=== PATIENT | male | born 1955 | race Hispanic/Latino ===

== ENCOUNTER → 2020-10-30 13:58 | Outpatient (CLI) | payer OTHER, SELFPAY ==
[2020-10-30 15:04] LABS: COVID19 -Nasal RAPID Negative (Negative)
== END ==
PROVIDERS: Referring Provider Orthopaedic Surgery; Visit Provider Student in an Organized Health Care Education/Training Program
DX: Z01.812 Encounter for preprocedural laboratory examination (principal); Z20.822 Contact with and (suspected) exposure to COVID-19
CPT/HCPCS: 87635

== ENCOUNTER 2020-10-31 12:30 | Day surgery (SDC) | payer OTHER, SELFPAY ==
[2020-10-23 09:18] VITALS: BMI 32.4
[2020-10-31] VITALS (10 sets, daily range): BP systolic 121–163; BP diastolic 66–90; PULSE 60–69; RESP 11–19; TEMP 35.4–36.7; O2SAT 96–100; BMI 32.4
[2020-10-31] MEDS: CELECOXIB 200 MG CAPSULE PO (12:51)
[2020-10-31] MEDS: ACETAMINOPHEN 325 MG TABLET 975 MG PO (12:51)
[2020-10-31] MEDS: PREGABALIN 75 MG CAPSULE PO (12:51)
[2020-10-31] MEDS: LACTATED RINGERS 1,000 ML 42 ML IV (13:14)
--- NOTE | 2020-10-31 13:14 | SUR.PREOP ---
Pre op admit completed with assistance of hospital-approved broker assistant. All questions answered and explained to patient. Visitor policy explained.
[2020-10-31] MEDS: VANCOMYCIN 1,000 MG/200 ML PIGGYBACK 200 MG IV (14:01)
--- NOTE | 2020-10-31 14:30 | DI.RAD.S_ITS ---
PROCEDURE: XR PELVIS 1-2V INDICATIONS: INTEROPERATIVE TOTAL RIGHT HIP TECHNIQUE: Intra-operative view of the pelvis and hip acquired. COMPARISON: None. FINDINGS: Bones: Intraoperative devices prior to placement of arthroplasty prostheses are in expected positions. No fractures or suspicious bony lesions. Soft tissues: Overlying surgical retractors are present, along with other intraoperative changes. IMPRESSION: Normal alignment established in preparation for placement of final components of right total hip arthroplasty. Dictated by: Higinio Zapata M.D. on 10/31/2020 at 16:54 Approved by: Higinio Zapata M.D. on 10/31/2020 at 16:55
[2020-10-31] MEDS: CEFAZOLIN 1 GM VIAL 2 GM IV ×2 (15:15→23:17)
[2020-10-31] MEDS: TRANEXAMIC ACID 1,000 MG VIAL 2000 MG INJ ×2 (15:17→16:54)
--- NOTE | 2020-10-31 15:48 | SUR.OPER ---
Left Lateral on padded OR bed. Gel axillary roll. Arms secured on padded armboard with pillow supporting top arm. Padded hip positioner braces x4 - anterior and posterior chest and pelvis. Additional gel pad used anterior pelvis. Gel pad under bottom leg from knee to foot and secured with tape over sheet.
[2020-10-31] MEDS: BUPIVACAINE 0.25% W/ EPI 30 ML VIAL 60 ML INJ (16:04)
[2020-10-31] MEDS: BUPIVACAINE LIPOSOME 266 MG/20 ML VIAL INJ (16:05)
[2020-10-31] MEDS: SODIUM CHLORIDE IRRIG SOLUTION 250 ML, POVIDONE-IODINE SPONGE STICKS 1 APPLIC IRR (16:07)
--- NOTE | 2020-10-31 16:16 | SUR.OPER ---
Addendum entered by Flory Macdonald R.N. 10/31/20 16:17: Lucas Cheema [phone], [facility] Approved interpreter for the deaf. Original Note: Pre-operative interview, confirming procedure consent prior to bringing patient to OR completed with [facility] approved Ergonomics Technician Lucas. Patient had no further questions.
[2020-10-31] MEDS: SODIUM CHLORIDE IRRIG SOLUTION 250 ML, EPINEPHrine 1 MG IRR (16:20)
--- NOTE | 2020-10-31 16:30 | DI.RAD.S_ITS ---
PROCEDURE: XR HIP W PEL IF DONE RT 2V INDICATIONS: RT TOTAL HIP TECHNIQUE: 2 view(s) of the hip acquired. COMPARISON: None. FINDINGS: Bones: Patient is status post right hip arthroplasty, with hardware components in expected positions. The hip joint appears congruent. The visualized bony structures appear intact. Soft tissues: Overlying postoperative changes are noted. No suspicious soft tissue densities. IMPRESSION: Postop changes from right total hip arthroplasty with anatomic right hip alignment. Dictated by: Louis Bucio M.D. on 11/01/2020 at 9:06 Approved by: Louis Bucio M.D. on 11/01/2020 at 9:07
--- NOTE | 2020-10-31 17:50 | P.OP_ITS ---
Operative Date/Time/Diagnoses Date of procedure: 10/31/20 Time of procedure: 15:00 Pre-op diagnosis: right hip post traumatic OA Post-op diagnosis: same Procedure & Clinicians Procedure: Right total hip arthroplasty posterior approach Same procedure as scheduled: Yes Indications: The patient has had progressively worsening right hip pain with radiographic changes consistent with arthritis. Non-operative management has failed and the patient has requested total hip replacement. The risks, benefits and alternatives to surgery were discussed with the patient prior to proceeding. Risks discussed included, but were not limited to, failure to relieve pain, leg length discrepancy, dislocation, stiffness, infection, nerve damage, deep venous thrombosis, pulmonary embolism, stroke, coma, heart attack, permanent paralysis and , as well as the potential need for eventual revision of the prosthetic. Surgeon: Autumn Olivier Bereavement Counselor: Yoandy Marr Anesthesia Type: General and Spinal Operative Notes Findings: Severe right hip osteoarthritis, adequate stability, good bone Closure Type: primary Specimen(s): none sent Prosthetic devices, grafts, tissues, transplants, or devices: Olivier and nephew size 7 high offset anthology, 54 mm cup, 36 by -3 Oxinium femoral head Applied: drain(s) Estimated Blood Loss (mL): 250 Blood products transfused: none Procedure in detail: The patient was seen in the pre-operative area, where the patient identified the right hip as the operative site and this was marked with my initials. The patient received pre-operative antibiotics and was taken to the operating room and placed on the operative table in the left lateral decubitus position after satisfactory anesthesia. A design center consultant out was performed. The right leg was prepared from the ankle to the iliac crest with ChloroPrep in the usual fashion and draped through sterile drapes. The hip was approached through an approximately 20 cm incision centered over the greater trochanter and curving gently posteriorly as it went proximally. This was carried sharply to the fascia celeste, which was divided and retracted with a self retaining retractor. The trochanteric bursa was excised with care being taken to avoid the sciatic nerve, which was identified and protected throughout the case. The short external rotators were incised and the capsulomuscular flap was raised and tagged for later repair. The hip was dislocated, and a femoral neck osteotomy performed approximately 15 mm above the lesser trochanter. Retractors were placed around the femur. The canal was opened with a box cutting osteotome, followed by a T handled reamer and a lateralizing reamer. The chili pepper broach was then used, followed by sequential broaching until there was good stability of the broach in the femur. Retractors were placed to expose the acetabulum. The labrum and central soft tissues were removed. Reaming was performed initially going up in 2 mm increments, then 1 mm increments until good bite was obtained with an odd sized reamer. The cup 1 mm larger than the last reamer was then inserted using the appropriate anteversion guides. It was further stabilized with a single screw. A trial neutral liner was placed. The broach was placed in the canal. A trial head and neck were then placed and the hip relocated and checked for leg length and stability. An intraoperative film confirmed the component position and no evidence of fracture. The patient was stable in the position of sleep, of squatting, and could be put through a range of motion with 45 degrees internal rotation without dislocation. At 90 degrees flexion, internal rotation to 70? was possible before dislocation. This was felt to be satisfactory and the appropriate components were opened, and the trials were removed. The acetabular liner was impacted into position. The final stem was then impacted into the prepared femoral canal. A brief Betadine soak was performed while trialing with head options. The hip was meticulously irrigated with normal saline. Finally the femoral head was impacted onto the stem. The acetabulum was cleared of all material and the hip relocated one final time. The capsulomuscular flap was then repaired to the greater trochanter though an awl hole using the tag sutures. The short external rotators were repaired with a nonabsorbable suture. A deep drain was placed and brought out anteriorly. The fascia celeste was closed with Vicryl. The subcutaneous layer was closed with barbed sutures and SteriStrips. An Aquacel Ag dressing was applied and the patient was taken to recovery having tolerated the procedure well. Complications: none Post-operative Condition: stable Disposition: Acute Care Plan for aftercare: The patient will be maintained on a standard total hip replacement protocol with weight bearing as tolerated and posterior hip precautions. The patient will receive Aspirin and sequential compression devices for DVT prophylaxis. The patient will be discharged home when safe for the home environment.
[2020-10-31] MEDS: OXYCODONE IR 5 MG TABLET PO ×2 (18:30→20:26)
[2020-10-31] MEDS: LACTATED RINGERS 1,000 ML 125 ML IV (18:31)
[2020-10-31] MEDS: ACETAMINOPHEN 325 MG TABLET 650 MG PO (21:26)
[2020-10-31] MEDS: IBUPROFEN 400 MG TABLET PO (21:27)
[2020-10-31] MEDS: ASPIRIN EC 81 MG TABLET PO (21:27)
[2020-10-31] MEDS: DOCUSATE 100 MG CAPSULE PO (21:27)
[2020-11-01 00:15] VITALS: BP 144/65; PULSE 67; RESP 16; TEMP 36.1; O2SAT 96
[2020-11-01] MEDS: OXYCODONE IR 5 MG TABLET PO ×3 (00:39→09:28)
[2020-11-01] MEDS: IBUPROFEN 400 MG TABLET PO ×4 (00:39→14:14)
[2020-11-01] MEDS: LACTATED RINGERS 1,000 ML 125 ML IV (02:47)
[2020-11-01 05:20] VITALS: BP 124/62; PULSE 62; RESP 18; TEMP 36.7; O2SAT 97
[2020-11-01] MEDS: CEFAZOLIN 1 GM VIAL 2 GM IV (06:28)
[2020-11-01 07:01] LABS: Hematocrit 37.6 % (41-53); Hemoglobin 12.2 g/dL (13.5-17.5)
[2020-11-01 08:01] VITALS: BP 125/59; PULSE 59; RESP 16; TEMP 36.7; O2SAT 97
[2020-11-01] MEDS: ACETAMINOPHEN 325 MG TABLET 650 MG PO ×2 (09:27→14:13)
[2020-11-01] MEDS: ASPIRIN EC 81 MG TABLET PO (09:28)
[2020-11-01] MEDS: DOCUSATE 100 MG CAPSULE PO (09:28)
--- NOTE | 2020-11-01 11:22 | PC.NURSE ---
Assess-Patient is alert and oriented x3, he is doing well. Given oxycodone for pain and helpful. Dressing to posterior hip is cdi, marielena Martinez to discharge patient more this afternoon. His is in the room and attentive to patients needs.
--- NOTE | 2020-11-01 11:25 | PT.IIE ---
Current Diagnoses Unilateral primary osteoarthritis, right hip (10/31/20) Surgery Performed Operation Date: 10/31/20 14:15 Actual Procedures p Total Hip Arthroplasty(Right) - Autumn Olivier MD Medical History (Last Updated 10/23/20 @ 10:49 by Alivia Kirk, RN) Medical history non-contributory Osteoarthritis Physical Therapy Inpatient Evaluation/Re-Eval M1 PT/OT-IP Prior Functional Status Start: 11/01/20 13:05 Freq: NEEDED Status: Active Protocol: Document 11/01/20 11:25 AB (Rec: 11/01/20 13:28 AB [id number]) Medical Review Prior Functional Status Medical History Reviewed Yes Communication mainly tamazight speaking; able to make needs known Mobility and Gait pt stated that he is indpeendnet with all mobilities and ambulation withotu AD but occasionally uses a SPC for outdoor ambulation Social History Household Members spouse Living Arrangements House Number of Floors (Floors) One Floor Number of Stairs To Enter/Railing? 1 step to enter Home Environment Standard Height Toilet,Tub/ Shower Home Equipment Straight Cane,Grab Bars In Shower M2 PT-IP Current Condition Start: 11/01/20 13:05 Freq: NEEDED Status: Active Protocol: Document 11/01/20 11:25 AB (Rec: 11/01/20 13:28 AB [id number]) Physical Therapy Current Condition Current Condition Evaluation Date 11/01/20 Treatment Diagnosis s/p R BAYRON posterior approach; difficulty in walking Onset Date 10/31/20 Precautions Posterior Hip Precautions No Hip Flexion > 90 degrees,No Hip Internal Rotation,No Hip Adduction Weight Bearing Status Weight Bearing Status Weight Bear as Tolerated Allowed Weight Bearing Amount (enter % RLE WBAT or #) (%) M3 PT-IP Subjective Start: 11/01/20 13:05 Freq: NEEDED Status: Active Protocol: Document 11/01/20 11:25 AB (Rec: 11/01/20 13:28 AB [id number]) Subjective Physical Therapy Visit Type Type Initial Evaluation Visit Start Time 11:25 Visit Stop Time 12:09 Total Visit Minutes 44 Notes reviewed chart and order included anterior hip precaution but nurse confirmed and clarified that it is posterior hip precaution and no anterior hip precaution; also notes MD surgery report: posterior hip approach Number of LAWYER Visits 0 Physical Therapy Visit Comments Patient Comments agreed to do PT; nurse Gina richard in room to assist with translation Therapy Pain Assessment Pain When Pain Assessed At Rest Pain Present Pain Present Pain Reported Location Right Hip Intensity 5 Scale Used Numeric (0 - 10) Pain Management Techniques Apply Cold,Distraction, Modification of Treatment,Re- positioning,Timing of Activity with Medications M4 PT-IP Mobility and Gait Start: 11/01/20 13:05 Freq: NEEDED Status: Active Protocol: Document 11/01/20 11:25 AB (Rec: 11/01/20 13:28 AB [id number]) PT-Bed Mobility Assessment Supine to Sit Supine to Sit Standby Assistance PT-Transfer Assessment Sit to and From Stand Sit to and from Stand Moderate Assistance,1 Person Assistance,Use of Upper Extremities Equipment Transfer Assistive Device Gait Belt,Front Wheeled Walker Orthotic/Prosthetic Devices or Brace: No Transfers Transfer Destination Chair Transfer Technique ambulated using FWW Transfer Ability Level of Assist Moderate Assistance,1 Person Assistance,Use of Upper Extremities Comments Mobility Comments pt educated on posterior hip precautions and understood. post-op folder provided. completed supine to sit SBA with cues. completed x 2 attempts with difficulty and requiring increase time to complete. reminded pt with hip precautions. completed sit to stand mod A and cues and ambulated in room using FWW and was only able to ambuate ~ 15 CGA to min A and pt has to sit down. refused further ambulation but agreed to stay up on the chair. positioned pt on chair. call light and table placed within reach. Gait Assessment Gait Gait Assistance Required: Contact Guard Assist,Minimum Assistance,1 Person Assist Distance (Feet) 15 Assistive Devices Assistive Device Gait Belt,Front Wheeled Walker Orthotic/Prosthetic Devices or Brace: No Gait Deviations General Gait Pattern Antalgic,Decreased Stride Length,Decreased Feet Clearance,Step-to Gait Factors Limiting Gait Function Factors Limiting Gait Function Decreased Activity Tolerance, Decreased Strength,Limited Range of Motion,Pain,Poor Balance Comments Gait Comments pls refer to mobility section for details PT-Balance Assessment Sitting Balance and Reactions Static Sitting Balance Ability Good Dynamic Sitting Balance Ability Good Standing Balance and Reactions Static Standing Balance Ability Fair Dynamic Standing Balance Ability Fair Device Used FWW M5 PT-IP Objective Assessments Start: 11/01/20 13:05 Freq: NEEDED Status: Active Protocol: Document 11/01/20 11:25 AB (Rec: 11/01/20 13:28 AB [email or web address]) Orientation Orientation/Cognition Level of Alertness Alert Orientation Name,Place,Situation Safety Awareness Understands Safety Issues, Decreased Safety Awareness Memory Description No Deficits Noted Gross Range of Motion Lower Extremity ROM Assessment Within Functional Limits Strength Lower Extremity Strength Assessment Right Impaired Hip 3+/5 Knee 4-/5 Coordination Assessment Gross Coordination Gross Coordination WNL Sensation Assessment Sensation Gross Sensation WNL Muscle Tone Muscle Tone WNL Yes M6 PT-IP Treatment Start: 11/01/20 13:05 Freq: NEEDED Status: Active Protocol: Document 11/01/20 11:25 AB (Rec: 11/01/20 13:28 AB [id number]) Physical Therapy Treatment Education Education Provided Precautions,Weight Bearing Status,Post-Op Packet,Safety M7 PT-IP Assessment and Plan Start: 11/01/20 13:05 Freq: NEEDED Status: Active Protocol: Document 11/01/20 11:25 AB (Rec: 11/01/20 13:28 AB [id number]) PT Summary Assessment and Plan Potential Rehabilitation Potential Good Status of Condition at Evaluation Stable Summary Impairments Pain,ROM,Strength,Balance, Coordination,Sensation,Tone, Cognition,Bed Mobility, Transfers,Gait,Activity Tolerance Assessment Summary pt requiring min to mod A with mobility using FWW but will likely progress with mobility during hospital stay. pt will have his spouse to assist him at home and caregiver training will be completed when appropriate as well as stair climbing training. pt currently has decrease activity tolerance and unable to ambulate much. will continue to assess progress and work towards goals. Goals Bed Mobility Goal Independent Transfer Goal Independent,Front Wheeled Walker Gait Goal Independent,Front Wheel Walker Gait Distance 150 Other Goals up/down 1 steps using FWW SBA Days to Meet Goals 5 Frequency of Treatment Frequency Of Treatment Twice a Day Treatment Plan Physical Therapy Treatment Plan Bed Mobility Training,Transfer Training,Gait Training, Therapeutic Exercise,Balance Retraining,Post Op Education, Discharge Planning,Hot or Cold Pack,Neuromuscular Re-ed, Coordination Retraining,Manual Therapy Precautions Posterior Hip Precautions No Hip Flexion > 90 degrees,No Hip Internal Rotation,No Hip Adduction Other Precautions RLE WBAT Recommendations To Nursing Amount of Assist Needed 1 Person Assist Discharge Recommendations PT Discharge Recommendations Home with Assistance, Outpatient PT Equipment Needed for Home Before FWW: will ask for orders Discharge Transportation Needs at Discharge Private Vehicle
[2020-11-01 11:26] VITALS: BP 139/68; PULSE 59; RESP 16; TEMP 36.8; O2SAT 98
--- NOTE | 2020-11-01 13:52 | PM.DS.1 ---
History of Present Illness History of Present Illness Date Patient Seen: 11/01/20 Time Patient Seen: 13:52 Chief complaint: Right Total Hip Arthroplasty *OPB* Narrative: Pain mild. Denies fever chills. No nausea vomiting. Son at bedside to interpret. Discharge Providers Provider Discharge Date: 11/01/20 Consults: 10/31/20 10:30 Consult to Anesthesiology Routine Comment: Consulting Provider: Anesthesiologist Reason for consultation: Regional block for post operative pain control 10/31/20 18:07 Consult to Discharge Planning Routine Comment: Consult to Physical Therapy Evaluate & Treat Comment: Physician Instructions: post op BAYRON protocol Consult to Respiratory Therapy Evaluate & Treat Comment: Physician Instructions: Evaluate and treat 11/01/20 13:48 Consult to Physical Therapy Evaluate & Treat Comment: Fit with FWW for home Physician Instructions: Evaluate and Treat Discharge provider: Yoandy Marr PA-C Summary Hospital Course Discharge Diagnosis: Right hip posttraumatic osteoarthritis Hospital Course: Pre-op diagnosis: right hip post traumatic OA Post-op diagnosis: same Procedure & Clinicians Procedure: Right total hip arthroplasty posterior approach Same procedure as scheduled: Yes Indications: The patient has had progressively worsening right hip pain with radiographic changes consistent with arthritis. Non-operative management has failed and the patient has requested total hip replacement. The risks, benefits and alternatives to surgery were discussed with the patient prior to proceeding. Risks discussed included, but were not limited to, failure to relieve pain, leg length discrepancy, dislocation, stiffness, infection, nerve damage, deep venous thrombosis, pulmonary embolism, stroke, coma, heart attack, permanent paralysis and , as well as the potential need for eventual revision of the prosthetic. Surgeon: Autumn Olivier Lactation Consultant: Yoandy Marr Anesthesia Type: General and Spinal Operative Notes Findings: Severe right hip osteoarthritis, adequate stability, good bone Closure Type: primary Specimen(s): none sent Prosthetic devices, grafts, tissues, transplants, or devices: Olivier and nephew size 7 high offset anthology, 54 mm cup, 36 by -3 Oxinium femoral head Applied: drain(s) Estimated Blood Loss (mL): 250 Blood products transfused: none Patient admitted to the hospital for right total hip arthroplasty, posterior approach. Patient consented to the same. Patient taken to the operating room on October 31, 2020. Patient back in his room recovering well as in stable condition. Patient will be weight-bearing as tolerated. Posterior hip precautions. Discharge home today in stable condition. Status at Discharge Cognitive/behavioral status at discharge: at baseline, oriented Functional status at discharge: uses cane/walker Overall status at discharge: patient is progressing back to baseline Exam Vital Signs (past 8 hours): - 11/01/20 08:01 11/01/20 11:26 Temperature 98.1 F 98.2 F Pulse Rate 59 L 59 L Respiratory Rate 16 16 Blood Pressure 125/59 L 139/68 Pulse Oximetry 97 98 Oxygen Delivery Method Room Air Oxygen Flow Rate 0 Narrative Exam Narrative: Pleasant 65-year-old male resting in bedside chair in no apparent distress. Dressing Clean, dry, intact.. Neurovascular status is intact bilateral lower extremities. Objective Labs Result Diagrams: 11/01/20 06:18 Labs: Laboratory Results - last 24 hr 11/01/20 06:18 Hgb 12.2 L Hct 37.6 L PFSH Medical History Medical history non-contributory Osteoarthritis Surgical History No history of previous surgery Social History household members: spouse Smoking Status: Never smoker alcohol intake: never Discharge Assessment & Plan Assessment and Plan Assessment: Patient progressing as expected status post right total hip arthroplasty Plan of Treatment: Discharge home today in stable condition. Discharge Plan Discharge Plan Patient Disposition: Home Provider Discharge Comment: Discharge home after physical therapy Discharge orders & Medications Discharge Orders: Discharge (Order); Ordered 11/01/20 Ordered By: Yoandy Marr Prescriptions: New acetaminophen 325 mg Tablet 650 mg PO TID Qty: 60 RF: 0 polyethylene glycol 3350 17 gram Powder In Packet 17 gm PO DAILY PRN (Reason: Constipation) Qty: 10 RF: 0 aspirin 81 mg Tablet,Delayed Release (Dr/Ec) 81 mg PO BID Qty: 60 RF: 0 ibuprofen 400 mg Tablet 400 mg PO Q4HR Qty: 60 RF: 0 oxycodone 5 mg Tablet 5 mg PO Q3HR PRN (Reason: Pain, Moderate (4-6)) Qty: 40 RF: 0 Discontinued meloxicam 15 mg Tablet 15 mg PO DAILY RF: 0 Follow up/Referrals: Autumn Olivier MD [Physician] - (2 weeks) Diet/Activity/Treatments Diet: Diet as Tolerated Activity: Weight-bearing as tolerated, posterior hip precautions Cold/Heat Therapy: Ice to hip as needed Skin/Wound/Dressing Care Report to your healthcare provider any signs of infection, such as:: chills, fever, increased pain, unusual drainage and unusual redness Dressing: Keep dressing clean and dry Visit Report/Discharge Packet Instructions: DI for Hip Replacement Stand Alone Forms: Surgery Discharge Discharge Data Attending Provider: Autumn Olivier VTE Deep Vein Thrombosis/Pulmonary Embolism Present on Admission: No
--- NOTE | 2020-11-01 15:40 | CM.IDA ---
Initial DCP Assessment Note Pt is a 65 yo male, resident of [place], now POD#1 from Rt hip surgery w/ Dr Olivier PCP: Jose Martin Rollins Payer: L+I Reviewed chart, pt discussed in multidisciplinary rounds this morning. Therapy has cleared pt for return home w/family to assist and pt has planned for home, DC order from Ortho has already been initiated this morning. No needs expected from DC planning team although will remain available in case this changes today. JUSTINO Mccarty
--- NOTE | 2020-11-01 16:28 | PT.IPTN ---
Current Diagnoses Unilateral primary osteoarthritis, right hip (10/31/20) Surgery Performed Operation Date: 10/31/20 14:15 Actual Procedures p Total Hip Arthroplasty(Right) - Autumn Olivier MD Physical Therapy Treatment Note M2 PT-IP Current Condition Start: 11/01/20 13:05 Freq: NEEDED Status: Discharge Protocol: Document 11/01/20 11:25 AB (Rec: 11/01/20 13:28 AB [id number]) Physical Therapy Current Condition Current Condition Evaluation Date 11/01/20 Treatment Diagnosis s/p R BAYRON posterior approach; difficulty in walking Onset Date 10/31/20 Precautions Posterior Hip Precautions No Hip Flexion > 90 degrees,No Hip Internal Rotation,No Hip Adduction Weight Bearing Status Weight Bearing Status Weight Bear as Tolerated Allowed Weight Bearing Amount (enter % RLE WBAT or #) (%) M3 PT-IP Subjective Start: 11/01/20 13:05 Freq: NEEDED Status: Discharge Protocol: Document 11/01/20 15:49 SP (Rec: 11/01/20 19:16 SP [id number]) Subjective Physical Therapy Visit Type Type Treatment Note Visit Start Time 15:49 Visit Stop Time 16:28 Total Visit Minutes 39 Notes completed caregiver training, provided support required throughout tx. Son provided translation throughout tx. Number of FOUR SLIDE OPERATOR Visits 1 Physical Therapy Visit Comments Patient Comments Pt agreed to participate in PT . Patient Goals Return home with to assist him as needed. Therapy Pain Assessment Pain When Pain Assessed During Mobility Pain Present Pain Present Pain Reported Location Right Hip Intensity 4 Scale Used Numeric (0 - 10) Description With Movement Pain Management Techniques Distraction,Re-positioning, Timing of Activity with Medications M4 PT-IP Mobility and Gait Start: 11/01/20 13:05 Freq: NEEDED Status: Discharge Protocol: Document 11/01/20 15:49 SP (Rec: 11/01/20 19:16 SP [id number]) PT-Bed Mobility Assessment Supine to Sit Supine to Sit Standby Assistance Sit to Supine Sit to Supine Standby Assistance Scooting Scooting to Edge of Bed Standby Assistance PT-Transfer Assessment Sit to and From Stand Sit to and from Stand Contact Guard Assistance,Use of Upper Extremities Equipment Transfer Assistive Device Gait Belt,Front Wheeled Walker Orthotic/Prosthetic Devices or Brace: No Transfers Transfer Destination Bed,Chair Transfer Technique ambulated using FWW Transfer Ability Level of Assist Standby Assistance,Contact Guard Assistance,Use of Upper Extremities Comments Mobility Comments donned gait belt post education. Sit>stand with proper hand placement post cues. Ambulated further distance into hallway approx 120 ft total, ascend/descended 1 PF step x2 using fWW CGA via with cues as needed for proper sequencing, stable. Pt completed sit at EOB> supine w/ CGA and cuing for using LLE under RLE for support, then center self. FOUR SLIDE OPERATOR instructed post op ex: AP, HS , quad set, glut set with good performance. Supine>sit CGA. SPT bed> chair using FWW SBA. Pt was seated in chair with all needs in reach. and son in room. Pt is ok to return home with family to assist him when medically cleared. FOUR SLIDE OPERATOR notifed nurse pt ready to complete DC needs. Gait Assessment Gait Gait Assistance Required: Contact Guard Assist,Minimum Assistance,1 Person Assist Distance (Feet) 120 Able to Maintain Weight Bearing Status Yes During Gait Assistive Devices Assistive Device Gait Belt,Front Wheeled Walker Orthotic/Prosthetic Devices or Brace: No Gait Deviations General Gait Pattern Antalgic,Decreased Stride Length,Decreased Feet Clearance,Step-to Gait Factors Limiting Gait Function Factors Limiting Gait Function Decreased Activity Tolerance, Decreased Strength,Limited Range of Motion,Pain Comments Gait Comments Pt progressed step to gait to semi tandem using FWW, SBA. See mobility comments. Stair Climbing Assessment Evaluation Level of Assist On Stairs Contact Guard Assistance Devices Stair Climbing Assistive Devices Front Wheel Walker Technique/Endurance Stair Climbing Direction Ascend and Descend Stair Climbing Technique Step to Step Number of Steps Climbed 1 Stair Climbing Set # Repetitions (reps) 2 Comments Stair Climbing Comments 2 PF steps using FWW CGA, occasional cues for sequencing . PT-Balance Assessment Sitting Balance and Reactions Static Sitting Balance Ability Normal Dynamic Sitting Balance Ability Good Standing Balance and Reactions Static Standing Balance Ability Good Dynamic Standing Balance Ability Fair Device Used FWW M5 PT-IP Objective Assessments Start: 11/01/20 13:05 Freq: NEEDED Status: Discharge Protocol: Document 11/01/20 11:25 AB (Rec: 11/01/20 13:28 AB [id number]) Orientation Orientation/Cognition Level of Alertness Alert Orientation Name,Place,Situation Safety Awareness Understands Safety Issues, Decreased Safety Awareness Memory Description No Deficits Noted Gross Range of Motion Lower Extremity ROM Assessment Within Functional Limits Strength Lower Extremity Strength Assessment Right Impaired Hip 3+/5 Knee 4-/5 Coordination Assessment Gross Coordination Gross Coordination WNL Sensation Assessment Sensation Gross Sensation WNL Muscle Tone Muscle Tone WNL Yes M6 PT-IP Treatment Start: 11/01/20 13:05 Freq: NEEDED Status: Discharge Protocol: Document 11/01/20 15:49 SP (Rec: 11/01/20 19:16 SP [id number]) Physical Therapy Treatment Exercises Exercises Ankle Pumps,Gluteal Sets,Quad Sets,Heel Slides,Seated Knee Flexion/Extension Knee ROM Measurement 80 deg R knee flexion Education Education Provided Precautions,Weight Bearing Status,Post-Op Packet,Safety Other Treatments Other Treatment Performed Recommended to get up and walk around every hour at home for strength and circulation. M7 PT-IP Assessment and Plan Start: 11/01/20 13:05 Freq: NEEDED Status: Discharge Protocol: Document 11/01/20 15:49 SP (Rec: 11/01/20 19:16 SP [id number]) PT Summary Assessment and Plan Potential Rehabilitation Potential Good Status of Condition at Evaluation Stable Summary Impairments Pain,ROM,Strength,Balance, Coordination,Sensation,Tone, Cognition,Bed Mobility, Transfers,Gait,Activity Tolerance Progress Towards Goals Progressing Toward Goals,Slow Progress due to Activity Tolerance Assessment Summary Pt required CGA- SBA during all mobility using fWW. Pt stated is set up with outpt therapy. Pt is ok to return home with to assist him as needed when medically cleared. FOUR SLIDE OPERATOR dispensed FWW for home use during tx. Goals Bed Mobility Goal Independent Transfer Goal Independent,Front Wheeled Walker Gait Goal Independent,Front Wheel Walker Gait Distance 150 Other Goals up/down 1 steps using FWW SBA Days to Meet Goals 5 Frequency of Treatment Frequency Of Treatment Twice a Day Treatment Plan Physical Therapy Treatment Plan Bed Mobility Training,Transfer Training,Gait Training, Therapeutic Exercise,Balance Retraining,Post Op Education, Discharge Planning,Hot or Cold Pack,Neuromuscular Re-ed, Coordination Retraining,Manual Therapy Other Recommendations and Next Treatment ther ex, distance gait. Focus Precautions Posterior Hip Precautions No Hip Flexion > 90 degrees,No Hip Internal Rotation,No Hip Adduction Other Precautions good recall 3/3 precautions. Recommendations To Nursing Amount of Assist Needed Standby Assistance,1 Person Assist Discharge Recommendations PT Discharge Recommendations Home with Assistance, Outpatient PT Equipment Needed for Home Before FWW dispensed. Discharge Transportation Needs at Discharge Private Vehicle
== END 2020-11-01 17:00 | disposition home or self-care (01) ==
LOC: OR 12:33 → AC 12:35
PROVIDERS: Referring Provider Preventive Medicine Occupational Medicine; Visit Provider Orthopaedic Surgery
PROC: 0SR90JZ Replacement of Right Hip Joint with Synthetic Substitute, Open Approach (ICD-10-PCS; CPT 27130; principal; 2020-10-31 14:15)
DX: M16.51 Unilateral post-traumatic osteoarthritis, right hip (principal)
CPT/HCPCS: 27130; 36415; 72170; 73502; 85014; 85018; 97116; 97161; 97530; C1776; C9290; J0171; J0690; J1100; J2250; J2310; J2405; J2704; J3010